=== PATIENT | female | born 1965 | race Caucasian/White ===

== ENCOUNTER 2017-01-15 16:56 | Emergency (ER) | payer MEDICAID, OTHER ==
[~2017-01-15] VITALS: Ht 152.4 cm; Wt 66.0 kg
[2017-01-15 17:01] VITALS: Ht 152.4 cm; Wt 66.0 kg
[2017-01-15] MEDS ORDERED: KETOROLAC 60 MG INJ IM STA (18:25)
[2017-01-15] MEDS ORDERED: CYCLOBENZAPRINE 10 MG TAB PO ONE (18:30)
[2017-01-15 18:40] LABS: URINE BLOOD (Dip) POC 2+ (NEGATIVE)
[2017-01-15] MEDS ORDERED: IBUP-1542 PO (19:23)
[2017-01-15] MEDS ORDERED: CYCL-319 PO (19:23)
--- NOTE | 2017-01-15 19:36 | ERD ---
ER Documentation Chief Complaint Date/Time DATE: 01/15/17 TIME: 19:28 Chief Complaint Complains of back pain since this am HPI 51-year-old female complaining of bilateral mid back pain since this morning. Patient states the pain had a gradual onset, but got worse after she was standing at work. Pain is better when she is lying down. She described pain as sharp pulling like sensation. Denies fall or heavy lifting. Denies saddle paresthesia. Denies bowel or bladder dysfunction. ROS All systems reviewed and are negative except as per history of present illness. 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/17 Allergies Allergies: Coded Allergies: No Known Allergy (Unverified , 01/15/17) PMhx/Soc Medical and Surgical Hx: pt denies Medical Hx, pt denies Surgical Hx Hx Alcohol Use: No Hx Substance Use: No Hx Tobacco Use: No Smoking Status: Unknown if ever smoked Physical Exam Vitals Vital Signs Date Time Temp Pulse Resp B/P Pulse Ox O2 Delivery O2 Flow Rate FiO2 01/15/17 17:01 98.8 71 20 156/83 100 Physical Exam General: Well-developed, well-nourished, conscious and coherent, in no distress Skin: Warm and dry without rash, good texture and turgor Head: Normocephalic without evidence of trauma Eyes: Sclera and conjunctivae normal; pupils equal, round, and reactive to light; extraocular movements are intact Chest: Normal AP diameter. Good expansion without retractions. Nontender. Lungs are clear to auscultate bilaterally with good tidal volume Heart: Regular rate and rhythm. No murmur, rub, or gallops heard Back: Without spinal or CVA tenderness. Muscle spasm noted bilateral thoracic region. Extremities: Full range of motion. Good strength bilaterally. No clubbing, cyanosis, or edema. Peripheral pulses are intact. Sensation intact Neuro: Alert and oriented 4, GCS 15. Cranial nerves grossly intact. Motor and sensory exams nonfocal. Moves all extremities. Speech clear. Gait normal Results 24 hrs Laboratory Tests Test 01/15/17 18:47 Bedside Urine pH (LAB) 5.5 Bedside Urine Protein (LAB) 1+ Bedside Urine Glucose (UA) Negative Bedside Urine Ketones (LAB) Negative Bedside Urine Blood 2+ Bedside Urine Nitrite (LAB) Negative Bedside Urine Leukocyte Esterase (L Trace Current Medications Medications (Trade) Dose Ordered Sig/Zev Route PRN Reason Start Time Stop Time Status Last Admin Dose Admin Ketorolac Tromethamine (Toradol) 60 mg ONCE STAT IM 01/15/17 18:25 01/15/17 18:27 DC 01/15/17 19:00 Cyclobenzaprine HCl (Flexeril) 20 mg ONCE ONCE PO 01/15/17 18:30 01/15/17 18:31 DC 01/15/17 19:00 Procedures/MDM Well-appearing 51-year-old female presented ED was bilateral mid back pain 1 day. Her history and physical exam findings are consistent with muscle spasm on the mid back. Patient does not have any midline spinal tenderness. I doubt spinal fracture, subluxation, or disc herniation. I doubt spinal epidural abscess, cauda equina syndrome. Toradol and Flexeril given to the patient in the ED for pain. Patient reports relief of pain after the medications. Patient appears well, stable for discharge and outpatient management. Medical decision making shared with patient and family. Education provided to patient and family. Patient and family expressed understanding of the plan. Medications on discharge: Ibuprofen, Flexeril. Follow-up: Primary care provider in 2-3 days or return to ED if worse. Disclaimer: Inadvertent spelling and grammatical errors are likely due to EHR/ dictation software use and do not reflect on the overall quality of patient care. Also, please note that the electronic time recorded on this note does not necessarily reflect the actual time of the patient encounter. Departure Diagnosis: Primary Impression: Back spasm Condition: Good Patient Instructions: Back Spasm, No Trauma [facility] Usted se mclean hecho un examen mdico de control que le indica que no est en melissa condicin que requiera tratamiento urgente en el Departamento de Emergencia. Un estudio ms profundo y el tratamiento de penn condicin pueden esperar sin ningn riesgo hasta que usted sea atendida/o en el consultorio de penn mdico o melissa cl bernadette. Es responsabilidad suya arreglar melissa leilani para el seguimiento del nicole. MANEJO DE CONDICIONES NO URGENTES EN EL FUTURO 1) Si usted tiene un mdico de atencin primaria: Usted debera llamar a penn mdico de atencin primaria antes de venir al departamento de emergencia. Despus de las horas de consultorio, penn doctor o penn asociado/a est disponible por telfono. El mdico o enfermero de kiel en el servicio telefnico puede asesorarle por ankur medio para atender el problema, o nicole contrario se puede programar melissa leilani. 2) Si usted no tiene un mdico de atencin primaria: Llame al mdico o clnica de referencia que aparece abajo benjamin las horas de consultorio para hacer melissa leilani para que le vean. CLINICAS: [facility] [phone] [facility] [phone] [facility]. [facility] [phone] [facility] [place] [phone] [facility]. [place] [id number] [phone] [facility]. [phone] Additional Instructions: Llame al doctor MAANA y juan melissa LEILANI PARA DENTRO DE 2-3 STANLEY.Dgale a la secretaria que nosotros le instruimos hacer esta leilani.Avise o llame si penn condicin se empeora antes de la leilani. Regresa aqui si peor o no mejor. KB LOBO NP Jan 15, 2017 19:36
[2017-01-15 19:37] VITALS: BP 150/86; PULSE 72; RESP 20; TEMP 98.9
== END 2017-01-15 19:38 | disposition home or self-care (01) ==
LOC: FTE 16:56
DX: M62.830 Muscle spasm of back (principal)
CPT/HCPCS: 81003; 96372; J1885; Z7502; Z7610